=== PATIENT | male | born 1980 | race Caucasian/White ===

== ENCOUNTER 2025-04-17 13:32 | Emergency (ER) | payer OTHER, SELFPAY ==
[2025-04-17 13:45] VITALS: BP 187/123; PULSE 120; RESP 20; TEMP 37; O2SAT 96
[2025-04-17] MEDS: LIDO 1%/EPINEPHRINE 1:100,000 20 ML VIAL INFILTRATE (14:15)
--- NOTE | 2025-04-17 14:15 | ED.WOUNDLAC ---
HPI - Wound/Laceration General Chief Complaint: Wound/Laceration Stated Complaint: gash on forhead Time Seen by Provider: 04/17/25 14:05 Source: patient and RN notes reviewed Mode of arrival: ambulatory Limitations: no limitations History of Present Illness HPI narrative: 44-year-old male presents Express Care complaining of laceration to forehead. Patient was open the car door when he believes the when caught in struck him in the face. Patient denies falling, loss of consciousness, or any other injuries. Patient denies any headaches, vision problems, dizziness, lightheadedness, nausea, vomiting, neck pain, back pain, or any other symptoms. Patient is at this injury occurred approximately 30 minutes ago prior to arrival. Patient's tetanus is up-to-date. Denies any significant past medical history. Patient does not take any blood thinners. Related Data Allergies Allergy/AdvReac Type Severity Reaction Status Date / Time No Known Allergies Allergy Verified 04/17/25 13:42 Review of Systems Review of Systems: CONSTITUTIONAL: Denies fever, chills, or sweats. EYES: Denies visual changes, redness, or discharge. ENT: Denies rhinorrhea, congestion, sore throat, or otalgia. CARDIOVASCULAR: Denies chest pain, palpitations, dizziness, lightheadedness or edema. RESPIRATORY: Denies cough or dyspnea. GASTROINTESTINAL: Denies abdominal pain, nausea, vomiting, or diarrhea. GENITOURINARY: Denies dysuria or hematuria. SKIN: Denies rash or itching. Positive for laceration. MUSCULOSKELETAL: Denies back pain, joint pain, or myalgia. NEUROLOGIC: Denies headache, numbness, loss of consciousness, seizure, slurred speech, facial droop, or weakness. PSYCHIATRIC: Denies anxiety or depression. All other systems reviewed are negative, except as documented in HPI. PMFSH Comments At the time of my signature, I reviewed and agree with the nursing past medical, surgical, social, and family history. There is no relevant family history pertinent to the patient complaint. Exam Narrative: GENERAL: This is a well-nourished, well-developed adult, in no apparent distress. They are non ill-appearing, nontoxic appearing. HEAD: normocephalic, atraumatic. Laceration to forehead, see [facility] for description no raccoon eyes or Vel[place] signs. EYES: Sclera clear/white. Conjunctiva normal. Vision is grossly intact. Extraocular movements intact. Pupils PERRLA. EARS: External ears normal,. Hearing grossly intact. NOSE: External nose normal THROAT: Mucous membranes moist, NECK: Neck supple, non-tender without lymphadenopathy, masses or thyromegaly. No cervical point tenderness, crepitus, or step-offs. Nontender through full range of motion. CARDIOVASCULAR: Regular rate and rhythm RESPIRATORY: Respiratory rate normal, respiratory effort nonlabored, no respiratory distress SKIN: warm, Dry, intact with no suspicious lesions or rash, good texture and turgor. See laceration note. NEURO: awake, alert, and oriented to person, place and time. There were no obvious focal neurologic abnormalities. Cranial nerve 2-12 grossly intact. EXTREMITIES: No joint tenderness, effusion, or edema noted. BACK: Nontender without deformity. No CVA tenderness. No thoracic or lumbar point tenderness, crepitus, or step-offs. HENMT: Head images:  1. Linear laceration on forehead, wound approximates well. It is measuring approximately 3 cm long. No surrounding redness, swelling, pain, or drainage. States he is itchy prior to arrival. Course Course Emergency Course: Portions of this record may have been created with voice recognition software Level of Care: Express Care Visit Vital Signs Vital signs: Vital Signs Temperature 98.6 F 04/17/25 13:45 Pulse Rate 120 H 04/17/25 13:45 Respiratory Rate 04/17/25 13:45 Blood Pressure 187/123 H 04/17/25 13:45 Pulse Oximetry 96 04/17/25 13:45 Oxygen Delivery Room Air 04/17/25 13:45 Temperature 98.6 F 04/17/25 13:45 Pulse Rate 120 H 04/17/25 13:45 Respiratory Rate 20 04/17/25 13:45 Blood Pressure 187/123 H 04/17/25 13:45 Pulse Oximetry 96 04/17/25 13:45 Oxygen Delivery Room Air 04/17/25 13:45 Reviewed Procedures Laceration Laceration 1: Date: 04/17/25 Time: 14:22 Site: face (Mid forehead, located right of the midline) Size (cm): 3 Description: linear Depth: simple, single layer Local Anesthetic: lidocaine 1% and with epi Amount of anesthesia used (mL): 3 Pre-repair: wound explored and irrigated extensively ====== Skin Level ====== Skin layer closed with: nylon Size (cm): 5-0 Number of sutures: 5 Technique: simple, interrupted ====== Subcutaneous Layer ====== ====== Muscle Layer ====== ====== Tendon Layer ====== Dressing: Antibiotic ointment, open to air. MDM - Wound/Laceration MDM Narrative Medical decision making narrative: [place] CT head injury/trauma algorithm indicates no CT scan necessary, very low risk for significant head injury. Patient has no symptoms of a head injury. Patient elected to has stitches over glue. Successful laceration repair. Patient required 5 sutures. Antibiotic ointment applied by nursing staff. Patient's tetanus is already up-to-date. Discussed physical exam findings. Advised supportive measures and signs/symptoms to go to the ER. Pt is appropriate for outpt treatment and f/u. Differential Diagnosis Differential diagnosis: Likely laceration, abrasion and avulsion of skin Critical Care Time Critical Care Time Critical Care Time: No Discharge Plan Discharge Clinical Impression: Forehead laceration Qualifiers: Encounter type: initial encounter Qualified Code(s): S01.81XA - Laceration without foreign body of other part of head, initial encounter Patient Disposition: Home Condition: Stable Instructions: Care For Your Stitches (ED) Additional Instructions: Your sutures need to be removed in 5-7 days. You may apply Vaseline or antibiotic ointment to them daily. Wash the wound daily with mild soap and water. ?Do NOT wash with peroxide or alcohol. Do not soak or scrub the wound. Avoid dirty water to the wound has healed completely. Take tylenol or ibuprofen as needed for pain. Follow the instructions on the bottle. Follow up with your PCP in 3-5 days. Go to the ER for any signs of infection such as redness, swelling, increased pain, or drainage. Go to ER if you develop severe headaches, vision problems, dizziness, loss of consciousness, lightheadedness, vomiting, nausea, or any serious concerns. ? Patient Language: [place] Follow-up/Referrals: PHYSICIAN,[employer] ANALYST [Primary Care Provider] - Time of Disposition: 14:51
[2025-04-17 14:54] VITALS: BP 160/98; PULSE 88
== END 2025-04-17 14:54 | disposition home or self-care (01) ==
DX: S01.81XA Laceration without foreign body of other part of head, initial encounter (principal); W22.8XXA Striking against or struck by other objects, initial encounter
CPT/HCPCS: 12013; 99212; G0463; J2004